=== PATIENT | female | born 1980 | race Caucasian/White ===

== ENCOUNTER 2018-07-20 11:32 | Emergency (ER) | payer OTHER ==
[~2018-07-20] VITALS: Ht 162.6 cm; Wt 68.0 kg
[2018-07-20 13:07] LABS: BACTERIA,URINE FEW /HPF (0-FEW); BILIRUBIN,URINE NEG (NEG); CLARITY,URINE CLOUDY; COLOR,URINE AMBER; GLUCOSE,URINE NEG (NEG); NITRITE,URINE NEG (NEG); SQUAMOUS EPITHELIAL CELL,UR MOD /LPF; UROBILINOGEN,URINE 0.2 mg/dL (0.2 mg/dL); WBC,URINE 20-40 /HPF (0-4)
--- NOTE | 2018-07-20 13:28 | PHYS DOC ---
Past History Past Medical History: Arthritis, Kidney Stones Past Surgical History: Other Alcohol Use: Occasionally Drug Use: None Adult General Chief Complaint Chief Complaint: PAIN ON URINATION [facility] HPI Patient is a 37 year old F who presents with painful urination and right-sided flank pain for the past 2-3 days. She describes mild nausea without vomiting. She has no other associated symptoms. She has no exacerbating or relieving factors. She does have a history of kidney stones and states that this pain is occasionally fluctuating in intensity. She is unsure if it feels similar to her previous kidney stones. Review of Systems Review of Systems Constitutional: Denies fever or chills [] Eyes: Denies change in visual acuity, redness, or eye pain [] HENT: Denies nasal congestion or sore throat [] Respiratory: Denies cough or shortness of breath [] Cardiovascular: No additional information not addressed in HPI [] GI: Denies abdominal pain, vomiting, bloody stools or diarrhea [] : Negative except history of present illness Musculoskeletal: Denies joint pain [] Integument: Denies rash or skin lesions [] Neurologic: Denies headache, focal weakness or sensory changes [] Endocrine: Denies polyuria or polydipsia [] All other systems were reviewed and found to be within normal limits, except as documented in this note. Family History Family History No pertinent medical history was reported Current Medications Current Medications Current medications were reviewed Allergies Allergies Ceclor Physical Exam Physical Exam Constitutional: Well developed, well nourished, no acute distress, non-toxic appearance. [] HENT: Normocephalic, atraumatic Eyes: PERRLA, EOMI, conjunctiva normal, no discharge. [] Neck: Normal range of motion, no tenderness, supple, no stridor. [] Cardiovascular:Heart rate regular rhythm, Lungs & Thorax: Bilateral breath sounds clear to auscultation [] Abdomen: Bowel sounds normal, soft, no masses, no pulsatile masses. [] Right flank pain and suprapubic pain Skin: Warm, dry, no erythema, no rash. [] Extremities: No tenderness, no cyanosis, no clubbing, ROM intact, no edema. [] Neurologic: Alert and oriented X 3, normal motor function, normal sensory function, no focal deficits noted. [] Psychologic: Affect normal, judgement normal, mood normal. [] Current Patient Data Vital Signs Vital Signs Date Time Temp Pulse Resp B/P (MAP) Pulse Ox O2 Delivery O2 Flow Rate FiO2 07/20/18 12:30 98.2 92 24 97 Room Air Lab Results Laboratory Tests Test 07/20/18 12:35 Urine Collection Type Unknown Urine Color Livia Urine Clarity Cloudy Urine pH 7.0 Urine Specific [place] 1.020 Urine Protein Trace (NEG-TRACE) Urine Glucose (UA) Neg mg/dL (NEG) Urine Ketones (Stick) Neg mg/dL (NEG) Urine Blood Small (NEG) Urine Nitrite Neg (NEG) Urine Bilirubin Neg (NEG) Urine Urobilinogen Dipstick 0.2 mg/dL (0.2 mg/dL) Urine Leukocyte Esterase Mod (NEG) Urine RBC 3-5 /HPF (0-2) Urine WBC 20-40 /HPF (0-4) Urine Squamous Epithelial Cells Mod /LPF Urine Bacteria Few /HPF (0-FEW) Urine Mucus Slight /LPF EKG EKG [] Radiology/Procedures Radiology/Procedures CT abdomen and pelvis noncontrast: No ureterolith noted. please review radiology report for specifics. Course & Med Decision Making Course & Med Decision Making Pertinent Labs and Imaging studies reviewed. (See chart for details) [] Dragon Disclaimer Dragon Disclaimer This electronic medical record was generated, in whole or in part, using a voice recognition dictation system. Departure Departure: Impression: Primary Impression: Pyelonephritis Disposition: 01 HOME, SELF-CARE Condition: STABLE Referrals: PCPADIA (PCP) Patient Instructions: Pyelonephritis, Adult Additional Instructions: Damon was seen in the emergency department for flank pain and urinary problems. No emergency medical condition was found on his physical exam. Her symptoms most consistent with a kidney infection. She was started on oral antibiotics and given prescription for nausea medication. She is advised to return to the emergency room if she develops new or worsening symptoms. She is also advised follow-up with her primary care doctor as needed for further management. Scripts Ondansetron Hcl (ZOFRAN) 4 Mg Tablet 1 TAB PO Q6HRS for nausea for 3 Days, #12 TAB Prov: LEANNA CHANDLER MD 07/20/18 Sulfamethoxazole/Trimethoprim (BACTRIM DS TABLET) 1 Each Tablet 1 TAB PO BID for pyelonephritis for 14 Days, #28 TAB Prov: LEANNA CHANDLER MD 07/20/18 LEANNA CHANDLER MD Jul 20, 2018 13:28
[2018-07-20] MEDS ORDERED: ONDANSETRON ODT 4 MG TAB.RAPDIS PO ONE (13:30)
[2018-07-20] MEDS ORDERED: KETOROLAC 30 MG/ML VIAL. IM ONE (13:30)
[2018-07-20] MEDS ORDERED: SMZ/TMP 800/160MG TABLET. PO ONE (13:30)
--- NOTE | 2018-07-20 15:14 | RAD ---
PQRS Compliance Statement: One or more of the following individualized dose reduction techniques were utilized for this examination: 1. Automated exposure control 2. Adjustment of the mA and/or kV according to patient size 3. Use of iterative reconstruction technique CT abdomen/pelvis without contrast 07/20/2018 1:41 PM INDICATION: Abdominal pain COMPARISON: None available TECHNIQUE: Multiple axial CT images of the abdomen and pelvis were obtained without intravenous contrast. Coronal and sagittal reformats are provided. FINDINGS: Lung bases are clear. Heart size is within normal limits. Evaluation of the solid abdominal viscera is limited by lack of intravenous contrast. The liver, bilateral adrenal glands, pancreas and gallbladder are normal in appearance. The abdominal aorta is normal in course and caliber. There are no pathologically enlarged lymph nodes in the abdomen and pelvis. There is no abdominal free fluid. There is no free intraperitoneal air. There is a 1 mm nonobstructing calculus in the midpole the right kidney. There is a 2 mm nonobstructing calculus in inferior pole left kidney. No calculi are identified in the kidneys, ureters or urinary bladder. Mild pericystic inflammatory changes are identified as may be seen with cystitis. Follicular changes are identified in the right adnexa. Tubal ligation clips are identified bilaterally. There is mild apparent colonic wall thickening involving the left colon, likely secondary to underdistention versus underlying colitis. Normal appendix is visualized. No suspicious osseous abnormality is identified. IMPRESSION: 1. Nonobstructing bilateral renal calculi are identified measuring 1-2 mm. No hydronephrosis. 2. Pericystic inflammatory changes may be seen in the setting of cystitis. Correlate with urinalysis. 3. Mild wall thickening involving the left colon and sigmoid colon may reflect underdistention versus mild colitis. Electronically signed by: Steph Franco MD (07/20/2018 3:10 PM) [facility]
[2018-07-20] MEDS ORDERED: SULF1TAB24 PO (15:27)
[2018-07-20] MEDS ORDERED: ONDA4TAB7 PO (15:27)
[2018-07-20 15:38] VITALS: BP 112/73
== END 2018-07-20 15:35 | disposition home or self-care (01) ==
LOC: ER 11:32
DX: N12 Tubulo-interstitial nephritis, not specified as acute or chronic (principal); M19.90 Unspecified osteoarthritis, unspecified site; Z87.442 Personal history of urinary calculi
CPT/HCPCS: 74176; 81001; 87086; 96372; 99284; J1885; Q0162

== ENCOUNTER 2020-02-29 23:45 | Emergency (ER) | payer SELFPAY ==
[~2020-02-29] VITALS: Ht 162.6 cm; Wt 72.2 kg
[~2020-02-29 23:45] MED LIST: ONDA4TAB7 PO; SULF1TAB24 PO
[2020-03-01 00:36] LABS: BASO % 0 % (0-3); EOS # 0.1 x10^3/uL (0.0-0.7); EOS % 1 % (0-3); HEMOGLOBIN 14.6 g/dL (12.0-15.5); LYMPH # 2.5 x10^3/uL (1.0-4.8); LYMPH % 35 % (24-48); MEAN CORPUSCULAR HEMOGLOBIN 32 pg (25-35); MEAN CORPUSCULAR HGB CONC 34 g/dL (31-37); MEAN CORPUSCULAR VOLUME 94 fL (79-100); MONO # 0.4 x10^3/uL (0.0-1.1); MONO % 6 % (0-9); NEUT # 4.1 x10^3uL (1.8-7.7); NEUT % 57 % (31-73); PLATELET COUNT 448 x10^3/uL (140-400); RED CELL DISTRIBUTION WIDTH 13.6 % (11.5-14.5); WHITE BLOOD COUNT 7.2 x10^3/uL (4.0-11.0)
[2020-03-01 00:43] LABS: BILIRUBIN,URINE NEG (NEG); CLARITY,URINE CLEAR; COLOR,URINE YELLOW; GLUCOSE,URINE NEG (NEG)
[2020-03-01 00:44] LABS: BACTERIA,URINE 0 /HPF (0-FEW); CALCIUM 8.8 mg/dL (8.5-10.1); CREATININE 0.7 mg/dL (0.6-1.0); GFR 94.2; NITRITE,URINE NEG (NEG); POTASSIUM 4.3 mmol/L (3.5-5.1); SQUAMOUS EPITHELIAL CELL,UR FEW /LPF; UROBILINOGEN,URINE 0.2 mg/dL (0.2 mg/dL); WBC,URINE OCC /HPF (0-4)
--- NOTE | 2020-03-01 00:46 | PHYS DOC ---
Past History Past Medical History: Arthritis, Kidney Stones Past Surgical History: Other Alcohol Use: Occasionally Drug Use: None General Adult EDM: Chief Complaint: PSYCH EVALUATION HPI: HPI: 39-year-old female presents via police department for psychiatric evaluation. The patient was having some form of conflict with her family. She tells me that she just wants to get her kids away from someone. She told family that she wanted to go to [place] with her kids. There is concerned that she was really alluding to harming herself. The police were involved and now they are seeking involuntary psychiatric hold for the patient. Patient has no medical complaints. Review of Systems: Review of Systems: Constitutional: Denies fever or chills Eyes: Denies change in visual acuity HENT: Denies nasal congestion or sore throat Respiratory: Denies cough or shortness of breath Cardiovascular: Denies chest pain or edema GI: Denies abdominal pain, nausea, vomiting, bloody stools or diarrhea : Denies dysuria Musculoskeletal: Denies back pain or joint pain Integument: Denies rash Neurologic: Denies headache, focal weakness or sensory changes Endocrine: Denies polyuria or polydipsia Lymphatic: Denies swollen glands Psychiatric: Depression, anxiety. Heart Score: Risk Factors: Risk Factors: DM, Current or recent (<one month) smoker, HTN, HLP, family history of CAD, obesity. Risk Scores: Score 0 - 3: 2.5% MACE over next 6 weeks - Discharge Home Score 4 - 6: 20.3% MACE over next 6 weeks - Admit for Clinical Observation Score 7 - 10: 72.7% MACE over next 6 weeks - Early Invasive Strategies Allergies: Allergies: Allergies Coded Allergies Type Severity Reaction Last Updated Verified cefaclor Allergy Unknown 07/20/18 Yes Physical Exam: PE: Constitutional: Well developed, well nourished, no acute distress, non-toxic appearance. [] HENT: Normocephalic, atraumatic, bilateral external ears normal, oropharynx moist, no oral exudates, nose normal. [] Eyes: PERRLA, EOMI, conjunctiva normal, no discharge. [] Neck: Normal range of motion, no tenderness, supple, no stridor. [] Cardiovascular: Heart rate regular rhythm, no murmur [] Lungs & Thorax: Bilateral breath sounds clear to auscultation [] Abdomen: Bowel sounds normal, soft, no tenderness, no masses, no pulsatile masses. [] Skin: Warm, dry, no erythema, no rash. [] Back: No tenderness, no CVA tenderness. [] Extremities: No tenderness, no cyanosis, no clubbing, ROM intact, no edema. [] Neurologic: Alert and oriented X 3, normal motor function, normal sensory function, no focal deficits noted. [] Psychologic: Affect tearful. mood depressed, anxious. [] Current Patient Data: Labs: Laboratory Tests Test 03/01/20 00:12 03/01/20 00:27 White Blood Count 7.2 x10^3/uL (4.0-11.0) Red Blood Count 4.60 x10^6/uL (3.50-5.40) Hemoglobin 14.6 g/dL (12.0-15.5) Hematocrit 43.0 % (36.0-47.0) Mean Corpuscular Volume 94 fL (79-100) Mean Corpuscular Hemoglobin 32 pg (25-35) Mean Corpuscular Hemoglobin Concent 34 g/dL (31-37) Red Cell Distribution Width 13.6 % (11.5-14.5) Platelet Count 448 x10^3/uL (140-400) H Neutrophils (%) (Auto) 57 % (31-73) Lymphocytes (%) (Auto) 35 % (24-48) Monocytes (%) (Auto) 6 % (0-9) Eosinophils (%) (Auto) 1 % (0-3) Basophils (%) (Auto) 0 % (0-3) Neutrophils # (Auto) 4.1 x10^3uL (1.8-7.7) Lymphocytes # (Auto) 2.5 x10^3/uL (1.0-4.8) Monocytes # (Auto) 0.4 x10^3/uL (0.0-1.1) Eosinophils # (Auto) 0.1 x10^3/uL (0.0-0.7) Basophils # (Auto) 0.0 x10^3/uL (0.0-0.2) POC Urine HCG, Qualitative hcg negative (Negative) EKG: EKG: [] Radiology/Procedures: Radiology/Procedures: [] Course & Med Decision Making: Course & Med Decision Making Pertinent Labs and Imaging studies reviewed. (See chart for details) The patient's alcohol was above 200. We gave her a liter normal saline and brought it down to 168. She is now medically stable for psychiatric evaluation. The psychiatric screener has determined that she meets criteria for involuntary admission. Placement is pending. [] Dragon Disclaimer: Dragon Disclaimer: This electronic medical record was generated, in whole or in part, using a voice recognition dictation system. Departure Departure: Impression: Primary Impression: Suicidal ideation Additional Impression: Alcoholism Disposition: 65 XFER TO PSYCH HOSP/UNIT Condition: STABLE Referrals: PCP,NO (PCP) Justification of Admission: Justification of Admission: Justification of Admission Dx: N/A JANNA ARCEO DO Mar 01, 2020 00:46
[2020-03-01 00:48] LABS: BARBITURATES NEG (NEG); BENZODIAZEPINES NEG (NEG); CANNABINOIDS POS (NEG); COCAINE NEG (NEG); METHADONE NEG (NEG); OPIATES NEG (NEG); PHENCYCLIDINE NEG (NEG)
[2020-03-01 00:49] LABS: ALBUMIN 3.8 g/dL (3.4-5.0); TOTAL BILIRUBIN 0.3 mg/dL (0.2-1.0); TOTAL PROTEIN 7.6 g/dL (6.4-8.2)
[2020-03-01 00:56] LABS: AMPHETAMINE/METHAMPHETAMINE NEG (NEG)
[2020-03-01] MEDS ORDERED: IV NORMAL SALINE 1,000ML 1,000 ML IV ONE (02:00)
[2020-03-01] MEDS ORDERED: ONDANSETRON PF 4 MG/2 ML VIAL. IVP ONE ×2 (02:15→08:30)
[2020-03-01] MEDS ORDERED: PROMETHAZINE 25 MG TABLET. PO ONE (10:15)
[2020-03-02] MEDS ORDERED: hydrOXYzine HCL 25 MG TABLET PO PRN (10:30)
[2020-03-02] MEDS ORDERED: ONDANSETRON ODT 4 MG TAB.RAPDIS PO ONE (19:30)
[2020-03-03] MEDS ORDERED: IBUPROFEN 400 MG TABLET. PO ONE (18:30)
[2020-03-03 19:54] VITALS: BP 120/81
[2020-03-03] MEDS ORDERED: traZODone 50 MG TABLET. PO PRN (20:15)
[2020-03-03] MEDS ORDERED: MIRTAZAPINE 15 MG TABLET PO PRN (20:15)
[2020-03-03] MEDS ORDERED: GABAPENTIN 100 MG CAPSULE. PO SCH (21:00)
[2020-03-04] MEDS ORDERED: FLUoxetine HCL 20 MG CAPSULE PO SCH (09:00)
== END 2020-03-04 03:01 ==
LOC: ER 23:45 → EEVIPCON 23:45 → ER 03-04 03:01
DX: R45.851 Suicidal ideations (principal); F10.20 Alcohol dependence, uncomplicated; M19.90 Unspecified osteoarthritis, unspecified site; Z87.442 Personal history of urinary calculi; Z88.1 Allergy status to other antibiotic agents; Y90.9 Presence of alcohol in blood, level not specified
CPT/HCPCS: 36415; 80053; 80307; 81001; 81025; 85025; 96361; 96374; 96375; 99285; G0480